=== PATIENT | female | born 1980 | race Caucasian/White ===

== ENCOUNTER 2025-01-17 13:15 | Outpatient (AMB) | payer BC, SELFPAY ==
--- NOTE | 2025-01-17 13:07 | MHC.PC.OV ---
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 Establish Care Intake Note: New Patient visit Music Education Director Required: No Allergies amoxicillin [From Augmentin] Allergy (Severe, Verified 01/17/25 13:08) Diarrhea clavulanic acid [From Augmentin] Allergy (Severe, Verified 01/17/25 13:08) Diarrhea Medication List - Last Reconciled 01/17/25 by Peggy Calvo MD clonazepam 1 mg PO BID melatonin mg PO [prebiotic and probiotic .] sertraline 100 mg PO BID Tobacco use date assessed: 01/17/25 Dental Screening Dental Screen Date: 01/17/25 Did you have a dental visit in the last 12 months?: Yes Did you have a dental problem in the last 6 months where you did not have access to dental care?: No Was dental information given to patient?: Patient has dentist HPI HPI Comments History of Present Illness Details 44 y/o female with a past medical history of hyperlipidemia, anxiety, seasonal allergies, divertuclitis, DVT presetning for follow up Anxiety: Was following with psychiatrist-they retired. Took over rx-clonazepam. Stable on zoloft Having a lot of hormone fluctuations, abnormal periods. Saw Dr Nino. Put on norethindrone. Got her periods every two weeks, stopped. Having bloating. Cant sleep, mood swings. Last period mid Nov. Mammo UTD Was going to [facility]-they closed. Saw [employer] [facility] [employer] radio station operator Dr Nino Colonoscopy 11/2016 ROS see HPI PHYSICAL EXAM: GENERAL: Alert and oriented x 3. NAD EYES: EOMI. Anicteric. HENT: Moist mucous membranes. No scleral icterus. No cervical lymphadenopathy. LUNGS: Clear to auscultation bilaterally. CARDIOVASCULAR: Regular rate and rhythm. No murmur. No JVD. ABDOMEN: Soft, non-tender +bs EXTREMITIES: No edema. Non-tender. SKIN: No rashes or lesions. Warm. NEUROLOGIC: No focal neurological deficits. CN II-XII grossly intact PSYCHIATRIC: Cooperative. Appropriate mood and affect [facility] Medical History History of mammogram GERD (gastroesophageal reflux disease) History of DVT (deep vein thrombosis) Diverticular disease Anxiety Surgical History History of colonoscopy Family History Mother Anxiety Hypertension Father Hypertension Paternal Grandmother Breast cancer Maternal Grandmother Aneurysm of aorta Dementia Paternal Grandfather Diabetes Son Autism Other FH: mental illness Social History Household Members: Spouse and Children Housing: House Alcohol intake: current Alcohol intake frequency: a few times a week Patient Tobacco Use Status: Never used Tobacco e-Cigarette/Vaping Use: Never Used Use of substances other than those prescribed or required for medical reasons: Yes Substance Use Type: Marijuana service: No Current occupational status: employed 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 1. Little interest or pleasure in doing things: not at all 2. Feeling down, depressed, or hopeless: not at all 3. Trouble falling or staying asleep, or sleeping too much: not at all 4. Feeling tired or having little energy: not at all 5. Poor appetite or overeating: not at all 6. Feeling bad about yourself - or that you are a failure or have let yourself or your family down: not at all 7. Trouble concentrating on things, such as reading the newspaper or watching television: not at all 8. Moving or speaking so slowly that other people could have noticed. Or the opposite - being so fidgety or restless that you have been moving around a lot more than usual: not at all 9. Thoughts that you would be better off or of hurting yourself in some way: not at all Total score: 0 Depression Screening Interpretation: Negative Depression Screening Done: Yes 54331 - PHQ-9 Billing: Yes Source: Developed by Drs. Javier Gasca, Mary Artis, Bj Sterling and colleagues, with an educational nate from [employer] Thrive Questionnaire Date Thrive assessed: 01/10/25 I am a: Patient What is your living situation today?: I have a steady place to live Within the past 12 months, did the food you bought not last and you didn't have the money to get more?: Never true Within the past 12 months, did you worry whether your food would run out before you got money to buy more?: Never true Do you have trouble paying for medicines?: No Do you have trouble getting transportation to medical appointments?: No Do you have trouble paying your heating and electricity bill?: No Do you have trouble taking care of your child, family member or friend?: No Do you have trouble with day-to-day activities such as bathing, preparing meals, shopping, managing finances, etc.?: No Are you currently unemployed and looking for a job?: No Are you interested in more education?: No Please select the resources that you would like help with: None THRIVE Score: 0 AUDIT C Alcohol Use Questionnaire (AUDIT-C) 1. How often do you have a drink containing alcohol?: 2-3 times a week 2. How many drinks containing alcohol do you have on a typical day when you are drinking?: 1 or 2 3. How often do you have six or more drinks on one occasion?: Never Total Score: 3 BENJAMÍN-7 AMB Questionnaire BENJAMÍN-7 Date BENJAMÍN - 7 assessed: 01/17/25 Feeling nervous, anxious, or on edge: 0 = Not at all Not being able to stop or control worryin = Not at all Worrying too much about different things: 0 = Not at all Trouble relaxin = Not at all Being so restless that it is hard to sit still: 1 = Several days Becoming easily annoyed or irritable: 0 = Not at all Feeling afraid as if something awful might happen: 0 = Not at all Total BENJAMÍN-7 score (0-4 normal; 5-9 mild; 10-14 moderate; 15-21 severe): 1 Source: Developed by Drs. Javier Gasca, Mary Artis, Bj Sterling and colleagues, with an educational nate from [employer]. BENJAMÍN-7 Assessment Billing BENJAMÍN-7 Assessment Tool: BENJAMÍN-7 Assessment 53652 Physical exam (Primary Care) Tobacco/Smoking Status: Tobacco use Status Tobacco use date assessed 01/17/25 01/17/25 13:08 Patient Tobacco Use Status Never used Tobacco 01/17/25 13:23 e-Cigarette/Vaping Use Never Used 01/17/25 13:23 Depression Screening Interpretation: Negative Thrive Assessment: Date of Thrive Assessment Date Thrive assessed 01/10/25 01/17/25 13:08 Coding Level of Care Code Est Pt Level 4 (17576) Complex EM visit Add On G2211 Diagnoses Irregular menses N92.6 Anxiety F41.9 Primary insomnia F51.01 Insomnia type: primary Additional Codes BENJAMÍN-7 Assessment Billing - BENJAMÍN-7 Assessment Tool: BENJAMÍN-7 Assessment 55276 ([id number]) PHQ-9 - 99268 - PHQ-9 Billing: Yes ([id number]) Assessment & Plan Assessment & Plan (1) Irregular menses: Code(s): N92.6 - Irregular menstruation, unspecified Category: Medical (2) Anxiety: Code(s): F41.9 - Anxiety disorder, unspecified Category: Medical (3) Insomnia: Code(s): G47.00 - Insomnia, unspecified Category: Medical Qualifiers: Insomnia type: primary Qualified Code(s): F51.01 - Primary insomnia Plan 44 y/o to reestablish care Past medical, surgical, social & family history reviewed Medications reconciled Check labs. May need referral radio station operator Anxiety-stable on current medications Insomnia-trial trazodone Orders: Orders Lutenizing Hormone Today G47.00 - Insomnia, unspecified, N92.6 - Irregular menstruation, unspecified, Z13.228 - Encounter for screening for other metabolic disorders TSH reflex Free T4 Today G47.00 - Insomnia, unspecified, N92.6 - Irregular menstruation, unspecified, Z13.228 - Encounter for screening for other metabolic disorders IRON PROFILE Today G47.00 - Insomnia, unspecified, N92.6 - Irregular menstruation, unspecified, Z13.228 - Encounter for screening for other metabolic disorders Lipid Panel Today N92.6 - Irregular menstruation, unspecified, Z13.220 - Encounter for screening for lipoid disorders, Z13.228 - Encounter for screening for other metabolic disorders Estradiol Ultra Sensitive Today G47.00 - Insomnia, unspecified, N92.6 - Irregular menstruation, unspecified, Z13.228 - Encounter for screening for other metabolic disorders Complete Blood Count Auto Diff Today G47.00 - Insomnia, unspecified, N92.6 - Irregular menstruation, unspecified, Z13.228 - Encounter for screening for other metabolic disorders Comprehensive Met. Panel Today G47.00 - Insomnia, unspecified, N92.6 - Irregular menstruation, unspecified, Z13.228 - Encounter for screening for other metabolic disorders Medications: New trazodone 50 mg PO BEDTIME PRN 90 tabs 3RF sleep Refilled clonazepam 1 mg PO BID 180 tabs 3RF F41.9 - Anxiety disorder, unspecified sertraline 100 mg PO BID 180 tabs 3RF
--- OUTSIDE RECORDS SUMMARY | 2025-01-17 15:17 | XMS_ITS | Clinical Summary ---
Author Organization [facility] Address [address] [place] [address] Care Team Providers Care Sales Order Administrator Name Role Phone Peggy Calvo MD Primary Care Provider [phone] Allergies Active Allergy Reactions Criticality Noted Date Comments Amoxicillin-Pot Clavulanate Diarrhea Low 07/15/20 23 Medications Medication Sig Dispensed Refills Start Date End Date Status clonazePAM (KlonoPIN) 1 MG tablet Take 1 mg by mouth nightly as needed. 05/24/2023 Active sertraline (ZOLOFT) 100 MG tablet Take 200 mg by mouth daily. Active benzonatate (TESSALON) 200 MG capsuleIndications:R ight non-suppurative otitis media Take 1 capsule (200 mg total) by mouth 3 (three) times a day as needed for cough. 30 capsule 11/23/2023 Active sertraline (ZOLOFT) 100 MG tabletIndications:De pression, unspecified depression type Take 1 tablet (100 mg total) by mouth 2 times a day. 180 tablet 12/02/2024 03/02/2025 Active Active Problems No known active problems Encounters Date Type Department Care Team Description 12/02/2024 4:10 PM EST Office Visit [facility] [address] [address] Aniceto Ricks MD Devitt, Anna C, APRN UTI symptoms (Primary Dx); Depression, unspecified depression type 12/02/2024 Travel from Last 3 Months Social History Tobacco Use Types Packs/Day Years Used Date Smoking Tobacco: Never Smokeless Tobacco: Never Alcohol Use Standard Drinks/Week Comments Yes 0 (1 standard drink = 0.6 oz pur e alcohol) occ Sex and Gender Information Value Date Recorded Sex Assigned at Not on file Gender Identity Not on file Sexual Orientation Not on file Last Filed Vital Signs Vital Sign Reading Time Taken Comments Blood Pressure 112/75 12/02/2024 4:21 PM EST Pulse 81 12/02/2024 4:21 PM EST Temperature 36.8 ??C (98.3 ??F) 12/02/2024 4:21 PM ES T Respiratory Rate 18 07/26/2023 3:59 PM EDT Oxygen Saturation 99% 12/02/2024 4:21 PM EST Inhaled Oxygen Concentration - - Weight 68 kg (150 lb) 12/02/2024 4:21 PM EST Height 165.1 cm (5' 5 ) 12/02/2024 4:21 PM EST Body Mass Index 24.96 12/02/2024 4:21 PM EST Plan of Treatment Health Maintenance Due Date Last Done Comments Hepatitis C Virus Screening 1981 HIV Screening 1994 DTaP/Tdap/Td Vaccines (1 - Tdap) 02/21/2000 Hepatitis B Vaccines (1 of 3 - 19+ 3-dose series) 02/21/2000 Pap Smear (Ages 21-65) 2002 Mammogram 2021 Influenza Vaccine 06/20/2024 COVID-19 Vaccine ( - 2023-2 5 season) 2024 HPV Vaccines Aged Out No longer eligi ble based on patient's age to complete this topic Pneumococcal Vaccine: Pediat aftab (0-5 Years) and At-Risk Patients (6 to 49 Years) Aged Out No longer eligible b ased on patient's age to complete this topic Procedures Procedure Name Priority Date/Time Associated Diagnosis Comments POCT URINALYSIS DIPSTICK (IN-HOUSE) (CHARGE) Routine 12/02/2024 4:42 PM EST UTI symptoms URINE CULTURE Routine 12/02/2024 4:34 PM EST UTI symptoms from Last 3 Months Results * (ABNORMAL) POCT Urinalysis Dipstick (12/02/2024 4:42 PM EST) Source, UA Clean Catch Color, UA Yellow Yellow & Clear, Yellow Clarity, UA Cloudy(A) Clear Glucose, UA Negative Negative Bilirubin, UA Negative Negative Ketones, UA Negative Negative Spec Grav, UA 1.015 1.003 - 1.030 Blood, UA Moderate (++)(A) Negative pH, UA 6.5 5 - 8 Protein, UA Negative Negative Urobilinogen, UA 0.2 0.2 - 1.0 mg/dL Nitrite, UA Negative Negative Leukocyte Esterase, UA Negative Negative Lot Number [id number] [employer] [place] Urine 12/02/2024 4:42 PM EST Zelda Fernandez APRN POINT OF CARE TEST O RDERABLES * URINE CULTURE (12/02/2024 4:34 PM EST) Culture SEE NOTE ROKT Comment: ??CULTURE, URINE, ROUTINE ?Micro Number: ?[id number] ??Test Status: ? Final ??Specimen Source: ?? Urine ??Specimen Quality: ??Adequate ??Result: ?Less than 10,000 CFU/mL of single Gram positive ? organism isolated. No further testing will be ? performed. If clinically indicated, recollection ? using a method to minimize contamination, with ? prompt transfer to Urine Culture Transport Tube, ? is recommended. Microbiology Urine specimen obtained by clean catch procedure / Unknown 12/02/2024 4:34 PM EST 12/03/2024 5:13 AM EST Zelda Fernandez APRN LAB AMB MICRO ORDERA BLES [employer] [address] [place] [phone] from Last 3 Months Care Teams Sales Order Administrator Relationship Specialty Start Date End Date Peggy Calvo MD [address] [place] [address] [place] [phone] PCP - General Internal Medicine 12/02/24
--- OUTSIDE RECORDS SUMMARY | 2025-01-17 15:17 | XMS_ITS ---
Author Name [facility] Organization Unknown History of Medication Use Medication Directions Dispensed Refills Start Date End Date Stat us clonazePAM (KlonoPIN) 1 MG tablet Take 1 mg by mouth nightly as needed. 05/24/2023 active sertraline (ZOLOFT) 100 MG tablet Take 1 tablet (100 mg total) by mouth 2 times a day. 12/02/2024 active amoxicillin (AMOXIL) 500 MG capsule Take 1 capsule (500 mg total) by mouth 2 (two) times a day. 07/21/2023 07/29/2023 active sulfamethoxazole-tri methoprim (BACTRIM DS,SEPTRA DS) 800-160 MG per tablet Take 1 tablet by mouth 2 (two) times a day. 07/26/2023 12/02/2024 active cefUROXime (CEFTIN) 500 MG tablet Take 1 tablet (500 mg total) by mouth 2 (two) times a day. 11/23/2023 12/04/2023 active Problems Problem Status Onset Date Problem Type Date of Resoluti on Source Right non-suppurative otitis media active [facility]Act [facility]
== END 2025-01-17 17:05 ==
PROVIDERS: PCP Internal Medicine; Visit Provider Internal Medicine
DX: N92.6 Irregular menstruation, unspecified (principal); F41.9 Anxiety disorder, unspecified; F51.01 Primary insomnia

== ENCOUNTER → 2025-01-17 13:15 | Outpatient (BNVA) | payer BC, SELFPAY | PROVIDERS: PCP Internal Medicine; Visit Provider Internal Medicine | DX: N92.6 Irregular menstruation, unspecified (principal); F41.9 Anxiety disorder, unspecified; F51.01 Primary insomnia; Z79.899 Other long term (current) drug therapy | CPT/HCPCS: 96127 ==

== ENCOUNTER 2025-01-24 09:28 | Outpatient (REF) | payer BC, SELFPAY ==
--- OUTSIDE RECORDS SUMMARY | 2025-01-24 10:15 | XMS_ITS | Clinical Summary ---
Author Organization [facility] Address [address] [place] [address] Care Team Providers Care Greenhouse Specialist Name Role Phone Peggy Calvo MD Primary Care Provider [phone] Allergies Active Allergy Reactions Criticality Noted Date [...] Description 12/02/2024 4:10 PM EST Office Visit [facility] [address] [address] Aniceto Ricks MD Devitt, Anna [...] Leukocyte Esterase, UA Negative Negative Lot Number [id number] Associate Media Planner Pass Pass Urine 12/02/2024 4:42 PM EST Zelda Fernandez APRN POINT OF CARE TEST O RDERABLES * URINE CULTURE (12/02/2024 4:34 PM EST) Culture SEE NOTE Divided Comment: ??CULTURE, URINE, ROUTINE ?Micro Number: ?[id number] ??Test Status: ? Final ??Specimen Source: ?? [...] Fernandez APRN LAB AMB MICRO ORDERA BLES [employer] [address] [place] [phone] from Last 3 Months Care Teams Greenhouse Specialist Relationship Specialty Start Date End Date Peggy Calvo MD [address] [place] [address] [place] [phone] PCP - General Internal Medicine 12/02/24
[2025-01-24 11:21] LABS: MANUAL DIFF FLAG NO
[2025-01-24 11:45] LABS: Basophils Percent Auto 0.9 % (0-2); Eosinophils Absolute Auto 0.1 X10*3/uL (0.0-0.4); Eosinophils Percent Auto 1.6 % (0-4); Hematocrit 37.9 % (37.0-47.0); Hemoglobin 12.7 g/dl (12.0-16.0); Imm Gran Abs Auto 0.01 X10*3/uL (0.00-0.03); Imm Gran Pct Auto 0.2 % (0.0-0.4); Lymphocytes Absolute Auto 1.9 X10*3/uL (1.2-4.9); Lymphocytes Percent Auto 41.7 % (20-40); Mean Corpuscular HGB Conc 33.5 g/dl (31.0-35.0); Mean Corpuscular Hemoglobin 30.5 pg (27.0-33.0); Mean Corpuscular Volume 91.1 fL (80.0-98.0); Mean Platelet Volume 11.2 fL (9.4-12.3); Monocytes Absolute Auto 0.4 X10*3/uL (0.1-1.2); Monocytes Percent Auto 8.2 % (2-11); Neutrophils Absolute Auto 2.1 x10*3/uL (2.0-8.3); Neutrophils Percent Auto 47.4 % (45-73); Platelet Count 195 X10*3/uL (160-400); Red Blood Count 4.16 X10*6/uL (4.20-5.50); Red Cell Distribution Width 12.1 % (11.0-16.0); White Blood Count 4.5 X10*3/uL (4.8-10.8)
[2025-01-24 12:17] LABS: Alanine Aminotransferase 13 U/L (0-31); Albumin Level 4.1 g/dL (3.5-5.0); Alkaline Phosphatase 72 U/L (39-117); Anion Gap 9 (12-20); Aspartate Amino Transferase 19 U/L (5-31); Blood Urea Nitrogen 15 mg/dL (9-16); Calcium 8.9 mg/dL (8.4-10.2); Carbon Dioxide 27 mmol/L (22-29); Chloride 107 mmol/L (96-108); Cholesterol 191 mg/dL (<200); Estimated Glomerular Filt Rate > 60; Glucose Random 84 mg/dL (60-115); HDL Cholesterol 63 mg/dL (>40); Iron 202 mcg/dL (30-160); LDL Cholesterol Calculated 116 mg/dL (<100); Percent Iron Saturation 80 % (15-50); Potassium 3.8 mmol/L (3.3-5.1); Sodium 139 mmol/L (135-145); Total Iron Binding Capacity 254 mcg/dL (228-428); Total Protein 7.2 g/dL (6.5-8.0); Triglycerides 60 mg/dL (<150); Unsaturated Iron Binding 52 ug/dL
[2025-01-24 12:18] LABS: TSH reflex Free T4 1.89 uIU/mL (0.32-4.0)
[2025-01-25 09:28] LABS: Lutenizing Hormone 11.6 mIU/mL
[2025-02-03 03:19] LABS: Estradiol Ultra Sensitive 316 pg/mL
== END 2025-01-24 09:29 | disposition home or self-care (01) ==
LOC: HO.WFDLDS 09:28
PROVIDERS: Visit Provider Internal Medicine
DX: G47.00 Insomnia, unspecified (principal); N92.6 Irregular menstruation, unspecified; Z13.228 Encounter for screening for other metabolic disorders; Z13.220 Encounter for screening for lipoid disorders; Z13.6 Encounter for screening for cardiovascular disorders
CPT/HCPCS: 36415; 80053; 80061; 82670; 83002; 83540; 84443; 85025

== ENCOUNTER 2025-01-30 09:39 | Outpatient (REF) | payer BC, SELFPAY ==
--- OUTSIDE RECORDS SUMMARY | 2025-01-30 11:33 | XMS_ITS | Clinical Summary ---
Author Organization [facility] Address [address] [place] [address] Care Team Providers Care Cement Loader Name Role Phone Peggy Calvo MD Primary Care Provider [phone] Allergies Active Allergy Reactions Criticality Noted Date [...] Description 12/02/2024 4:10 PM EST Office Visit [facility] [address] [address] Aniceto Ricks MD Devitt, Anna [...] Leukocyte Esterase, UA Negative Negative Lot Number [id number] Employee Benefits Insurance Agent Pass Pass Urine 12/02/2024 4:42 PM EST Zelda Fernandez APRN POINT OF CARE TEST O RDERABLES * URINE CULTURE (12/02/2024 4:34 PM EST) Culture SEE NOTE Pr[employer] Comment: ??CULTURE, URINE, ROUTINE ?Micro Number: ?[id number] ??Test Status: ? Final ??Specimen Source: ?? [...] Fernandez APRN LAB AMB MICRO ORDERA BLES [employer] [address] [place] [phone] from Last 3 Months Care Teams Cement Loader Relationship Specialty Start Date End Date Peggy Calvo MD [address] [place] [address] [place] [phone] PCP - General Internal Medicine 12/02/24
== END 2025-01-30 09:40 | disposition home or self-care (01) ==
LOC: HO.WFDLDS 09:39
PROVIDERS: Visit Provider Internal Medicine
DX: E83.19 Other disorders of iron metabolism (principal)
CPT/HCPCS: 36415; 81256

== ENCOUNTER 2025-02-18 09:25 | Outpatient (AMB) | payer BC, SELFPAY ==
--- NOTE | 2025-02-18 09:15 | A.OFFPC_ITS ---
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: results Intake Note: Lab results. Went [facility] Monday due to dehydration. Hit head on the toliet and ended up getting a concussion. Vocational Training Teacher Required: No Allergies amoxicillin [From Augmentin] Allergy (Severe, Verified 02/18/25 09:17) Diarrhea clavulanic acid [From Augmentin] Allergy (Severe, Verified 02/18/25 09:17) Diarrhea Tobacco use date assessed: 01/17/25 Dental Screening Dental Screen Date: 01/17/25 HPI HPI Comments History of Present Illness Details 44 y/o female with a past medical histor y of hyperlipidemia, anxiety, seasonal allergies, divertuclitis, DVT presenting for follow up Recent GI illness with syncope-seen in the ER -truth or consequences February 14.She did hit her head. Declined CT at the time. Brain fog, ARGUETA, fatigue-Some improved starting February 16 until now. No confusion, vision changes or hypersomnolence She had labs with elevated iron and elevated iron sat. 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 She will be referred to hematology for evaluation Anxiety: Was following with psychiatrist- retired. Took over rx-clonazepam. Stable on zoloft Having a lot of hormone fluctuations, abnormal periods. Saw Dr Nino. Put on norethindrone. Got her periods every two weeks, stopped. Having bloating. Cant sleep, mood swings. Last period mid Nov. Mammo UTD Was going to [facility]-they closed. Saw [facility] separator tender Dr Nino Colonoscopy 11/2016 ROS see HPI PHYSICAL EXAM: Telehealth [facility] Medical History History of mammogram GERD (gastroesophageal reflux disease) History of DVT (deep vein thrombosis) Diverticular disease Anxiety Surgical History History of colonoscopy Family History Mother Anxiety Hypertension Father Hypertension Paternal Grandmother Breast cancer Maternal Grandmother Aneurysm of aorta Dementia Paternal Grandfather Diabetes Son Autism Other FH: mental illness Social History Household Members: Spouse and Children Housing: House Alcohol intake: current Alcohol intake frequency: a few times a week Patient Tobacco Use Status: Never used Tobacco e-Cigarette/Vaping Use: Never Used Use of substances other than those prescribed or required for medical reasons: Yes Substance Use Type: Marijuana service: No Current occupational status: employed 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 [place] Current occupational exposures/hazards: Yes (scissors) Cognitive needs: No Hearing needs: No Vision needs: Yes (glasses) Questionnaire Thrive Questionnaire Date Thrive assessed: 01/10/25 I am a: Patient What is your living situation today?: I have a steady place to live Within the past 12 months, did the food you bought not last and you didn't have the money to get more?: Never true Within the past 12 months, did you worry whether your food would run out before you got money to buy more?: Never true Do you have trouble paying for medicines?: No Do you have trouble getting transportation to medical appointments?: No Do you have trouble paying your heating and electricity bill?: No Do you have trouble taking care of your child, family member or friend?: No Do you have trouble with day-to-day activities such as bathing, preparing meals, shopping, managing finances, etc.?: No Are you currently unemployed and looking for a job?: No Are you interested in more education?: No Please select the resources that you would like help with: None Currently or been in a relationship where the following occur: No concerns reported THRIVE Score: 0 BENJAMÍN-7 AMB Questionnaire BENJAMÍN-7 Date BENJAMÍN - 7 assessed: 01/17/25 Source: Developed by Drs. Javier Gasca, Mary Artis, Bj Sterling and colleagues, with an educational nate from [employer]. Physical exam (Primary Care) Tobacco/Smoking Status: Tobacco use Status Tobacco use date assessed 01/17/25 02/18/25 09:16 Patient Tobacco Use Status Never used Tobacco 02/18/25 09:18 e-Cigarette/Vaping Use Never Used 02/18/25 09:18 Thrive Assessment: Date of Thrive Assessment Date Thrive assessed 01/10/25 02/18/25 09:16 Currently or been in a relationship where the following occur: No concerns reported Telehealth Telehealth Telehealth Platform: Telephone Location of provider rendering services: practice address Location of patient: address on file Patient Identification confirmed using: Name, : Yes Telehealth method: voice only Patient verbally consented to treatment: Yes Patient verbally consented to billing insurance company: Yes Patient informed of any privacy concerns related to visit: Yes Minutes spent on Phone/Video with Pt.: 35 Coding Level of Care Code Tele Est Pt Level 4 (12353) Diagnoses Hereditary hemochromatosis E83.110 Hospital discharge follow-up Z09 Concussion without loss of consciousness, subsequent encounter S06.0X0D Encounter type: subsequent encounter Loss of consciousness presence/duration: without LOC Assessment & Plan Assessment & Plan (1) Hereditary hemochromatosis: Code(s): E83.110 - Hereditary hemochromatosis Category: Medical (2) Hospital discharge follow-up: Code(s): Z09 - Encounter for follow-up examination after completed treatment for conditions other than malignant neoplasm Category: Medical (3) Concussion: Code(s): S06.0XAA - Concussion with loss of consciousness status unknown, initial encounter Category: Medical Qualifiers: Encounter type: subsequent encounter Loss of consciousness presence/dur ation: without LOC Qualified Code(s): S06.0X0D - Concussion without loss of consciousness, subsequent encounter Plan HH-referral to heme Concussion-discussed home care. Discussed red flags warranting reevaluation/imaging Orders: Referrals Hematology & Oncology Referral E83.110 - Hereditary hemochromatosis, E83.19 - Other disorders of iron metabolism
--- OUTSIDE RECORDS SUMMARY | 2025-02-18 10:36 | XMS_ITS | Clinical Summary ---
Author Organization [facility] Address [address] [place] [address] Care Team Providers Care X Ray Consultant Name Role Phone Peggy Calvo MD Primary Care Provider [phone] Allergies Active Allergy Reactions Criticality Noted Date [...] Description 12/02/2024 4:10 PM EST Office Visit [facility] [address] [address] Aniceto Ricks MD Devitt, Anna [...] Leukocyte Esterase, UA Negative Negative Lot Number [id number] Power Lineman Pass Pass Urine 12/02/2024 4:42 PM EST Zelda Fernandez APRN POINT OF CARE TEST O RDERABLES * URINE CULTURE (12/02/2024 4:34 PM EST) Culture SEE NOTE [employer] Comment: ??CULTURE, URINE, ROUTINE ?Micro Number: ?[id number] ??Test Status: ? Final ??Specimen Source: ?? [...] Fernandez APRN LAB AMB MICRO ORDERA BLES [employer] [address] [place] [phone] from Last 3 Months Care Teams X Ray Consultant Relationship Specialty Start Date End Date Peggy Calvo MD [address] [place] [address] [place] [phone] PCP - General Internal Medicine 12/02/24
== END 2025-02-18 17:05 | disposition home or self-care (01) ==
LOC: HO.HMCFM 09:25
PROVIDERS: PCP Internal Medicine; Visit Provider Internal Medicine
DX: E83.110 Hereditary hemochromatosis (principal); Z09 Encounter for follow-up examination after completed treatment for conditions other than malignant neoplasm; S06.0X0A Concussion without loss of consciousness, initial encounter

== ENCOUNTER → 2025-03-14 13:30 | Outpatient (BNV) | payer BC, SELFPAY | PROVIDERS: PCP Internal Medicine; Referring Provider Internal Medicine; Visit Provider Internal Medicine | DX: E83.110 Hereditary hemochromatosis (principal) | CPT/HCPCS: 99204 ==

== ENCOUNTER 2025-08-29 11:35 | Outpatient (REF) | payer BC, SELFPAY ==
[2025-08-29 14:13] LABS: MANUAL DIFF FLAG NO
[2025-08-29 14:23] LABS: Hematocrit 36.9 % (37.0-47.0); Hemoglobin 12.5 g/dl (12.0-16.0); Imm Gran Abs Auto 0.01 X10*3/uL (0.00-0.03); Imm Gran Pct Auto 0.2 % (0.0-0.4); Lymphocytes Absolute Auto 2.1 X10*3/uL (1.2-4.9); Mean Corpuscular HGB Conc 33.9 g/dl (31.0-35.0); Mean Corpuscular Hemoglobin 30.6 pg (27.0-33.0); Mean Corpuscular Volume 90.4 fL (80.0-98.0); NRBC Abs Auto 0.000 X10*3/uL (0.0-0.012); NRBC Pct Auto 0.0 /100WBC (0.0-0.2); Platelet Count 212 X10*3/uL (160-400); Red Blood Count 4.08 X10*6/uL (4.20-5.50); White Blood Count 5.2 X10*3/uL (4.8-10.8)
[2025-08-29 14:32] LABS: Iron 98 mcg/dL (30-160); Percent Iron Saturation 37 % (15-50); Total Iron Binding Capacity 265 mcg/dL (228-428); Unsaturated Iron Binding 167 ug/dL
== END 2025-08-29 11:36 | disposition home or self-care (01) ==
LOC: HO.WFDLDS 11:35
PROVIDERS: Visit Provider Internal Medicine
DX: E83.110 Hereditary hemochromatosis (principal)
CPT/HCPCS: 36415; 83540; 85025